=== PATIENT | female | born 1995 | race Two or more races ===

== ENCOUNTER 2022-10-23 02:46 | Emergency (ER) | payer MEDICAID, OTHER ==
[~2022-10-23] VITALS: Ht 149.9 cm; Wt 80.0 kg
[2022-10-23] MEDS ORDERED: HYDROcodone-ACET 5/325MG TAB PO ONE (04:30)
[2022-10-23 05:00] LABS: Basophils # (auto) 0 10 ^3/uL (0-0.2); Basophils % (auto) 0.3 % (0.0-2.0); Eosinophils # (auto) 0 10 ^3/uL (0-0.8); Eosinophils % (auto) 0.1 % (0.0-7.0); Hematocrit 37.1 % (36.0-46.0); Hemoglobin 12.8 g/dL (12.2-16.2); Mean Corpuscular Hemoglobin 30.5 pg (28.0-32.0); Mean Corpuscular Hgb Conc. 34.4 g/dL (32.0-36.0); Mean Corpuscular Volume 88.6 fL (80.0-100.0); Monocytes # (auto) 0.4 10 ^3/uL (0-1.3); Monocytes % (auto) 3.3 % (0.0-12.0); Neutrophils # (auto) 10.1 10 ^3/uL (1.6-8.6); Neutrophils % (auto) 80.3 % (37.0-80.0); Nucleated Red Blood Cells % 0.1 %; Red Blood Cells 4.19 10^6/uL (4.0-5.20); Red Cell Distribution Width 14.1 % (11.8-14.3); White Blood Cell 12.5 10^3/uL (4.4-10.8)
[2022-10-23 05:07] LABS: Albumin 3.9 g/dL (3.4-5.0); Calcium 8.6 mg/dL (8.5-10.1); Potassium 3.4 mmol/L (3.5-5.1)
[2022-10-23 05:11] LABS: Bilirubin, Total 0.4 mg/dL (0.2-1.0); Total Protein 7.5 g/dL (6.4-8.2)
[2022-10-23] MEDS ORDERED: MORPHINE SULFATE 4 MG/ML SYR/VIAL IV ONE (08:45)
[2022-10-23] MEDS ORDERED: SODIUM CHLORIDE 0.9% 500 ML IV ONE (08:45)
[2022-10-23] MEDS ORDERED: ONDANSETRON HCL 4 MG/2 ML VIAL IV ONE (08:45)
[2022-10-23] MEDS ORDERED: SODIUM CHLORIDE 0.9% 1,000 ML IVB ONE (08:45)
[2022-10-23 10:54] VITALS: BP 109/64
== END 2022-10-23 12:22 | disposition home or self-care (01) ==
LOC: ER 02:46
DX: O03.9 Complete or unspecified spontaneous abortion without complication (principal)
CPT/HCPCS: 36415; 76801; 80053; 83690; 84702; 85025; 86900; 86901; 96361; 96374; 96375; 99285; J2270; J2405; J7030; J7040

== ENCOUNTER 2025-03-23 11:02 | Emergency (ER) | payer MEDICAID ==
[~2025-03-23] VITALS: Ht 152.4 cm; Wt 81.0 kg
--- NOTE | 2025-03-23 11:14 | ED.PDOC ---
HPI Comments 29-year-old female presents to the ED for a chief complaint of chest fullness/pressure, described as a "balloon sensation," that she reports "shoots back up to her throat". Patient reports history of GERD and was on medication, however does not feel like her flare ups which are usually described as heart burn. Patient is 9 weeks and 5 days gestation. She was feeling nauseous and after eating, lays in a flat position. Additionally, she had a runny nose for the past 1.5 months. She denies any vomiting. fever, chills, diarrhea. She does mention hx of anxiety in which she mentions increased due to recent symptoms. She has history of a previous miscarriage. 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 Family History Family History: Reviewed,noncontributory to illness Social History Smoker: Non-Smoker Alcohol: Denies ETOH Use Drugs: Denies Drug Use Lives In: Home Constitutional: denies: chills, diaphoresis, fatigue, fever, malaise, sweats, weakness, others EENTM: denies: blurred vision, double vision, ear bleeding, ear discharge, ear drainage, ear pain, ear ringing, eye pain, eye redness, hearing loss, mouth pain, mouth swelling, nasal discharge, nose bleeding, nose congestion, nose pain, photophobia, tearing, throat pain, throat swelling, voice changes, others Respiratory: denies: cough, hemoptysis, orthopnea, SOB at rest, shortness of breath, SOB with excertion, stridor, wheezing, others Cardiovascular: reports: palpitations; denies: chest pain, dizzy spells, diaphoresis, Dyspnea on exertion, edema, irregular heart beat, left arm pain, lightheadedness, PND, syncope, others Gastrointestinal: denies: abdomen distended, abdominal pain, blood streaked bowels, constipated, diarrhea, dysphagia, difficulty swallowing, hematemesis, melena, nausea, poor appetite, poor fluid intake, rectal bleeding, rectal pain, vomiting, others Genitourinary: denies: abnormal vagina bleeding, burning, dyspareunia, dysuria, flank pain, frequency, hematuria, incontinence, pain, , vagina discharge, urgency, others Neurological: denies: dizziness, fainting, headache, left sided numbness, left sided weakness, numbness, paresthesia, pre-existing deficit, right sided numbness, right sided weakness, seizure, speech problems, tingling, tremors, weakness, others Musculoskeletal: denies: back pain, gout, joint pain, joint swelling, muscle pain, muscle stiffness, neck pain, others Integumetry: denies: bruises, change in color, change in hair/nails, dryness, laceration, lesions, lumps, rash, wounds, others Allergic/Immunocompromised: denies: Difficulty Healing, Frequent Infections, Hives, Itching, others Hematologic/Lymphatic: denies: anemia, blood clots, easy bleeding, easy bruising, swollen glands, others Endocrine: denies: excessive hunger, excessive sweating, excessive thirst, excessive urination, flushing, intolerance to cold, intolerance to heat, unexplained weight gain, unexplained weight loss, others Psychiatric: denies: anxiety, bipolar disorder, depression, hopeless, panic disorder, schizophrenia, sleepless, suicidal, others All Other Systems: Reviewed and Negative Physical Exam General Appearance: No Apparent Distress, Normal HEENT: Normal ENT Inspection, Pharynx Normal, TMs Normal Neck: Full Range of Motion, Non-Tender, Normal, Normal Inspection Respiratory: Chest Non-Tender, Lungs Clear, No Accessory Muscle Use, No Respiratory Distress, Normal Breath Sounds Cardiovascular: No Edema, No JVD, No Murmur, No Gallop, Normal Peripheral Pulses, Regular Rate/Rhythm Breast Exam: Deferred Gastrointestinal: No Organomegaly, Non Tender, No Pulsatile Mass, Normal Bowel Sounds, Soft Genitalia: Deferred Pelvic: Deferred Rectal: Deferred Extremities: No calf tenderness, Normal capillary refill, Normal inspection, Normal range of motion, Non-tender, No pedal edema Musculoskeletal : Apperance: Normal Neurologic: Alert, property management specialist II-XII nml as Tested, No Motor Deficits, Normal Affect, Normal Mood, No Sensory Deficits Cerebellar Function: Normal Reflexes: Normal Skin: Dry, Normal Color, Warm Lymphatic: No Adenopathy EKG EKG #1: Comments Rate of 77 normal sinus rhythm no significant ST changes EKG #2: Comments EKG 2. At 12:04 p.m.. Rate of 71 sinus arrhythmia Was a procedure done? Was a procedure done?: No CP Differential Dx Differential Diagnosis: Anxiety / Panic Attack, Digoxin Toxicity, Electrolyte Disorder Differential Diagnosis: Angina, Cholelithiasis, Esophageal reflux/spasm, Gastritis, Myocardial Infarction, Pericarditis, Pneumonia, Pneumothorax, Pulmonary Embolus X-Ray, Labs, Meds, VS Vital Signs Date Time Temp Pulse Resp B/P (MAP) Pulse Ox O2 Delivery O2 Flow Rate FiO2 03/23/25 12:04 71 03/23/25 11:59 98.4 77 18 106/73 (84) 97 98.4 03/23/25 11:59 77 18 97 Room Air 03/23/25 11:07 98.0 80 18 93/60 98 98.0 03/23/25 11:07 77 Lab Test 03/23/25 11:14 Range/Units White Blood Count 9.5 4.4-10.8 10^3/uL Red Blood Count 4.48 4.0-5.20 10^6/uL Hemoglobin 13.1 12.2-16.2 g/dL Hematocrit 39.4 36.0-46.0 % Mean Corpuscular Volume 87.7 80.0-100.0 fL Mean Corpuscular Hemoglobin 29.2 28.0-32.0 pg Mean Corpuscular Hemoglobin Concent 33.3 32.0-36.0 g/dL Red Cell Distribution Width 14.5 H 11.8-14.3 % Platelet Count 369 140-450 10^3/uL Mean Platelet Volume 7.8 6.9-10.8 fL Neutrophils (%) (Auto) 61.3 37.0-80.0 % Lymphocytes (%) (Auto) 30.6 10.0-50.0 % Monocytes (%) (Auto) 7.1 0.0-12.0 % Eosinophils (%) (Auto) 0.8 0.0-7.0 % Basophils (%) (Auto) 0.2 0.0-2.0 % Neutrophils # (Auto) 5.8 1.6-8.6 10 ^3/uL Lymphocytes # (Auto) 2.9 0.4-5.4 10 ^3/uL Monocytes # (Auto) 0.7 0-1.3 10 ^3/uL Eosinophils # (Auto) 0.1 0-0.8 10 ^3/uL Basophils # (Auto) 0 0-0.2 10 ^3/uL Nucleated Red Blood Cells 0.0 % D-Dimer, Quantitative 0.23 0.0-0.49 mg/L FEU Sodium Level 140 136-145 mmol/L Potassium Level 4.0 3.5-5.1 mmol/L Chloride Level 112 H 98-107 mmol/L Carbon Dioxide Level 24 20-31 mmol/L Anion Gap 4 L 5-15 Blood Urea Nitrogen 9 9-23 mg/dL Creatinine 0.74 0.550-1.02 mg/dL Glomerular Filtration Rate Calc 112 >90 mL/min BUN/Creatinine Ratio 12.2 10.0-20.0 Serum Glucose 103 74-106 mg/dL Calcium Level 9.5 8.7-10.4 mg/dL Troponin I High Sensitivity < 3 L </=34 ng/L 29-year-old female presents here with epigastric discomfort that radiates to her chest and palpitations that she has been having. Patient is currently 9 weeks . She is a . She states during this she has had some nausea and dry heaving but no significant vomiting. She has no leg swelling to her legs. At this time differential includes PE given that she is . CBC BMP D-dimer troponin and EKGs has been ordered. Patient's lungs are clear on my examination, and she is saturating well therefore chest x-ray has not been ordered. At this time EKG x2 are within normal limits. Troponin is negative. CBC BMP, D-dimer all within normal limits. At this time I spoke to the patient further I have low suspicion that this is cardiac or pulmonary related. Suspect this could be gastritis. She does state it is epigastric discomfort that radiates into her chest. She does have a history of GERD and states that she often uses Tums but did not think that this could be that. She also has anxiety and I suspect her anxiety related to this current discomfort she is having is exacerbating the issue. I advised her the heartburn can worsen in and this is known. I advised her that she should eat smaller more frequent meals. Avoid greasy spicy foods that can trigger heartburn. Also advised her to sit upright 1 hour after eating and not lay flat immediately. She states she normally does lay flat immediately. At this time I advised her to monitor symptoms tried Tums. Advised her however if symptoms worsen she should follow up with her OBGYN and considered bending placed on famotidine. Advised her if any point she has difficulty breathing or worsening symptoms act in the ER. Patient well-appearing on my examination. Time of 1ST Reevaluation: 13:05 Reevaluation 1ST: Unchanged Patient Education/Counseling: Diagnosis, Treatment, Prognosis Family Education/Counseling: No Family Present SEPSIS Sepsis Screen Physician Orders Troponin-I Hs (03/23/25 14:04) Troponin-I Hs (03/23/25 12:04) Electrocardigram (03/23/25 12:04) Electrocardigram (03/23/25 14:04) Urinalysis (03/23/25 11:28) Vital Signs Date Time Temp Pulse Resp B/P (MAP) Pulse Ox O2 Delivery O2 Flow Rate FiO2 03/23/25 12:04 71 03/23/25 11:59 98.4 77 18 106/73 (84) 97 98.4 03/23/25 11:59 77 18 97 Room Air 03/23/25 11:07 98.0 80 18 93/60 98 98.0 03/23/25 11:07 77 Laboratory Tests Test 03/23/25 11:14 White Blood Count 9.5 10^3/uL (4.4-10.8) Departure 1 Departure Time of Disposition: 13:13 Impression: Primary Impression: Chest pain Qualified Codes: R07.9 - Chest pain, unspecified Additional Impression: Gastritis Qualified Codes: K29.00 - Acute gastritis without bleeding Disposition: 01 HOME / SELF CARE / HOMELESS Condition: Fair Additional Instructions: Follow up with the primary care physician in 2-3 days. Please eat smaller more frequent meals rather than larger meal. Please avoid spicy greasy food. After eating sit upright for 1 hour. Take Tums as needed. If symptoms continue please return back to the ER. Follow up with your primary care physician or OBGYN in 2-3 days. Discharged With: Self Critical Care Note Critical Care Time?: No Stability Stability form required: No Heart Score Heart Score: Heart Score Response (Comments) Value History Slightly Suspicious 0 EKG Normal 0 Age <45 0 Risk Factors No known risk factors 0 Troponin Normal limit 0 Total 0 I personally scribed for FENSTER,AAKANKSHA M MD ([email or web address]) on 03/23/25 at 13:05. Electronically submitted by Kim Glover ([facility]). LUAN PHIPPS MD Mar 23, 2025 11:14
--- NOTE | 2025-03-23 11:16 | ECG ---
[facility] Test Date: 2025-03-23 Test Time: 11:07:40 Pat Name: NANDO ROSS Department: Room: Gender: F [employer] Account Assistant: JULIANN : 1995 Requested By: LUAN PHIPPS Order Number: [id number] Reading MD: Oren Pak Measurements Intervals [place] Rate: 77 P: 20 [place]: 132 QRS: 9 QRSD: 83 T: 50 QT: 371 QTc: 420 Interpretive Statements Sinus rhythm Electronically Signed On 03-25-2025 10:57:44 PST by Oren Pak Please click the below link to view image of tracing.
[2025-03-23 11:39] LABS: Potassium 4.0 mmol/L (3.5-5.1); Sodium 140 mmol/L (136-145)
[2025-03-23 11:40] LABS: Anion Gap 4 (5-15); Calcium 9.5 mg/dL (8.7-10.4); Carbon Dioxide 24 mmol/L (20-31); Hematocrit 39.4 % (36.0-46.0); Hemoglobin 13.1 g/dL (12.2-16.2); Mean Corpuscular Hemoglobin 29.2 pg (28.0-32.0); Mean Corpuscular Volume 87.7 fL (80.0-100.0); Nucleated Red Blood Cells % 0.0 %
[2025-03-23 11:45] LABS: BUN/Creatinine Ratio 12.2 (10.0-20.0); Glucose 103 mg/dL (74-106)
[2025-03-23 11:55] LABS: Blood Urea Nitrogen 9 mg/dL (9-23); Chloride 112 mmol/L (98-107)
[2025-03-23 13:56] VITALS: BP 104/70; PULSE 82; RESP 18; TEMP 97.9; O2SAT 100
--- NOTE | 2025-03-27 09:59 | ECG ---
[facility] Test Date: 2025-03-23 Test Time: 12:04:09 Pat Name: NANDO ROSS Department: Room: Gender: F [employer] R[employer]: KALA : 1995 Requested By: LUAN PHIPPS Order Number: [id number] Reading MD: Oren Pak Measurements Intervals [place] Rate: 71 P: 20 [place]: 129 QRS: 6 QRSD: 85 T: 46 QT: 380 QTc: 413 Interpretive Statements Sinus arrhythmia Electronically Signed On 03-29-2025 15:38:41 PST by Oren Pak Please click the below link to view image of tracing.
== END 2025-03-23 14:00 | disposition home or self-care (01) ==
LOC: ER 11:02
DX: O99.611 Diseases of the digestive system complicating pregnancy, first trimester (principal); O26.891 Other specified pregnancy related conditions, first trimester; F41.9 Anxiety disorder, unspecified; Z3A.09 9 weeks gestation of pregnancy; Z79.899 Other long term (current) drug therapy
CPT/HCPCS: 36415; 80048; 84484; 85025; 85379; 93005